=== PATIENT | female | born 1980 | race Asian ===

== ENCOUNTER 2023-02-08 12:02 | Outpatient (CLI) | payer BC | END 2023-02-08 12:03 | disposition home or self-care (01) | LOC: CSHMAMMO 12:02 | PROVIDERS: ATTEND Family Medicine Sports Medicine | DX: Z12.31 Encounter for screening mammogram for malignant neoplasm of breast (principal) | CPT/HCPCS: 77063; 77067 ==

== ENCOUNTER 2023-03-13 15:28 | Outpatient (CLI) | payer BC | END 2023-03-13 15:29 | disposition home or self-care (01) | LOC: CSHULT 15:28 | PROVIDERS: ATTEND Family Medicine Sports Medicine | DX: E04.1 Nontoxic single thyroid nodule (principal) | CPT/HCPCS: 76536 ==

== ENCOUNTER 2024-02-11 08:40 | Outpatient (CLI) | payer BC | END 2024-02-11 08:41 | disposition home or self-care (01) | LOC: CSHMAMMO 08:40 | PROVIDERS: ATTEND Family Medicine Sports Medicine | DX: Z12.31 Encounter for screening mammogram for malignant neoplasm of breast (principal) | CPT/HCPCS: 77063; 77067 ==